=== PATIENT | female | born 1995 | race Caucasian/White ===

== ENCOUNTER → 2018-07-14 | Outpatient (CLI) | payer OTHER | LOC: COL.RAD 12:46 | DX: Q62.5 Duplication of ureter (principal); Q64.0 Epispadias | CPT/HCPCS: Q9967 ==

== ENCOUNTER → 2018-07-17 | Outpatient (CLI) | payer OTHER | LOC: COL.RAD 09:07 | DX: Q62.5 Duplication of ureter (principal); Q64.0 Epispadias; Z98.890 Other specified postprocedural states | CPT/HCPCS: Q9967 ==